=== PATIENT | female | born 1965 | race Two or more races ===

== ENCOUNTER 2021-03-05 07:47 | Outpatient (CLI) | payer OTHER | END 2021-03-05 23:59 | disposition home or self-care (01) | LOC: LAB 07:47 | PROVIDERS: ATTEND Specialist | DX: Z01.812 Encounter for preprocedural laboratory examination (principal); Z20.822 Contact with and (suspected) exposure to COVID-19 | CPT/HCPCS: C9803; U0003 ==

== ENCOUNTER 2021-03-12 05:02 | Inpatient (IN) | payer OTHER ==
[~2021-03-12] VITALS: Ht 160 cm; Wt 81.6 kg
[2021-03-12] MEDS ORDERED: BUPIVACAINE 0.5 % PF 150 MG/30 ML VIAL ONE (05:39)
[2021-03-12] MEDS ORDERED: ANESTHESIA TRAY IN PYXIS 1 EA TRAY MC ONE (05:39)
--- NOTE | 2021-03-12 05:42 | NUR ---
SHUTTLE DRIVER NOTE RECEIVED PATIENT VIA AMBULATION. PATIENT IS A/O X4 PATIENT IS BREATHING EVENLY AND NONLABORED ON ROOM AIR. NO SIGNS OF DISTRESS NOTED. PATIENT DENIES PAIN AT THIS TIME. VITALS BP 133/99, HR 96, O2 SAT 96 % RR 18 AND TEMP 97.7. IV ACCESS WAS PLACED LAC # 18 GAUGE. MRSA SWAB OBTAINED AND PLACED IN LAB FRIDGE, LAB AWARE. PATIENT IS HERE FOR RIGHT KNEE TOTAL ARTHROPLASTY, CONSENT DONE, CHECKLIST DONE. PROCEDURE IS SCHEDULED AND PATIENT VERBALIZED UNDERSTANDING. PATIENTS BELONGINGS WERE ACCOUNTED FOR. PATIENT WAS ORIENTED TO THE ROOM AND HOW TO USE THE CALL LIGHT. SAFETY MEASURES IN PLACE BED LOW LOCKED AND CALL LIGHT WITHIN REACH. WILL CONTINUE TO MONITOR
[2021-03-12] MEDS ORDERED: TRANEXAMIC ACID 3,000 MG in SODIUM CHLORIDE IRRIG SOLUTION 70 ML IR ONE (06:00)
[2021-03-12] MEDS ORDERED: FENTANYL PF 250MCG/5ML AMPUL ONE (06:09)
[2021-03-12] MEDS ORDERED: CLINDAMYCIN 900 MG/6 ML VIAL ONE (06:10)
[2021-03-12] MEDS ORDERED: MIDAZOLAM HCL 2 MG/2ML VIAL ONE (06:10)
--- NOTE | 2021-03-12 06:10 | NUR ---
RN NOTE PATIENT LEFT FOR SURGICAL PROCEDURE, WILL ENDORSE TO ONCOMING SHIFT
[2021-03-12] MEDS ORDERED: SUCCINYLCHOLINE CHLORIDE 20 MG/ML VIAL ONE (06:11)
[2021-03-12] MEDS ORDERED: FAMOTIDINE/PF INJ 20 MG/2 ML VIAL IV ONE (06:11)
[2021-03-12] MEDS ORDERED: FENTANYL PF 100MCG/2ML AMPUL ONE (09:15)
[2021-03-12] MEDS ORDERED: DOCUSATE SODIUM 250 MG CAPSULE PO PRN (09:30)
[2021-03-12] MEDS ORDERED: BISACODYL SUPP (10 MG) 10 MG/SUPP.RECT SUPP.RECT RC PRN (09:30)
[2021-03-12] MEDS ORDERED: SENNOSIDES 8.6 MG TABLET PO PRN (09:30)
[2021-03-12] MEDS ORDERED: HYDROCODONE/APAP 5/325MG TABLET PO PRN (09:30)
[2021-03-12] MEDS ORDERED: ONDANSETRON HCL/PF 4 MG/2 ML VIAL IVP PRN (09:30)
[2021-03-12] MEDS ORDERED: ZOLPIDEM TARTRATE 5 MG TABLET PO PRN (09:30)
[2021-03-12] MEDS ORDERED: ACETAMINOPHEN 325 MG TABLET PO PRN (09:30)
--- NOTE | 2021-03-12 10:00 | NUR ---
MD ADMIT FROM DAY SURGERY AFTER REPORT RECEIVED FROM KAVITA MAURICIO RN. PATIENT ORIENTED TO PRIMARY RN, UNIT, ROOM, BED, AND UNIT POLICIES REGARDING PATIENT CARE AND VISITING HOURS. PATIENT WEIGHED BY BED SCALE AND ENCOURAGED TO CALL IF THEY NEED ANYTHING. ALL QUESTIONS AND CONCERNS ADDRESSED, PATIENT VERBALIZED UNDERSTANDING.
[2021-03-12] MEDS: IV D5/0.45 NACL 1,000 ML IV PRN (10:21)
[2021-03-12] MEDS ORDERED: HYDROMORPHONE 1 MG/1 ML DISP.SYRIN SQ ONE (10:23)
[2021-03-12] MEDS ORDERED: diphenhydrAMINE HCL 25 MG CAPSULE PO PRN (10:30)
[2021-03-12] MEDS ORDERED: MAG HYDROX/AL HYDROX/SIMETH 30 ML UDC PO PRN (10:30)
[2021-03-12] MEDS ORDERED: MENTHOL/CETYLPYRD (CEPACOL) 1 LOZ LOZENGE PO PRN (10:30)
[2021-03-12] MEDS ORDERED: LORAZEPAM 1 MG TABLET PO PRN (10:30)
[2021-03-12] MEDS ORDERED: CLONIDINE HCL 0.1 MG TABLET PO PRN (10:30)
[2021-03-12] MEDS: ONDANSETRON HCL/PF 4 MG/2 ML VIAL IV PRN ×3 (10:50→20:21)
[2021-03-12] MEDS: oxyCODONE IR immediate release 5 MG PO PRN (12:21)
[2021-03-12 15:57] VITALS: BP 107/49
[2021-03-12] MEDS: CLINDAMYCIN 600 MG in IV D5W 50 ML IV SCH ×2 (16:06→22:22)
[2021-03-12] MEDS: DOCUSATE SODIUM 100 MG CAPSULE PO SCH (16:08)
[2021-03-12] MEDS: HYDROMORPHONE 1 MG/1 ML DISP.SYRIN SQ PRN ×3 (16:08→23:52)
[2021-03-12] MEDS: RIVAROXABAN 10 MG TABLET PO SCH (16:12)
--- NOTE | 2021-03-12 19:41 | NUR ---
CHANGE OF SHIFT REPORT PATIENT RESTING COMFORTABLY IN BED. NO S/S OR C/O PAIN OR DISTRESS NOTED. SIDE RAILS UP X2, CALL LIGHT LEFT WITHIN REACH. PT KEPT CLEAN, DRY, AND COMFORTABLE. NO SIGNIFICANT CHANGES SINCE ADMISSION. REPORT GIVEN TO SUIM ADAIR.
[2021-03-12 20:00] VITALS: BP 110/57
[2021-03-12] MEDS: FAMOTIDINE (20 MG) 20 MG TABLET PO SCH (20:22)
--- NOTE | 2021-03-12 22:00 | NUR ---
RT INSTRUCTED THE INCENTIVE SPIROMETER TO THE PT, VERBALIZED UNDERSTANDING, REMINDED THE PATIENT TO DO IT QHOUR 10X WHILE AWAKE.
[2021-03-13] MEDS: IV D5/0.45 NACL 1,000 ML IV PRN (01:40)
[2021-03-13] MEDS: CLINDAMYCIN 600 MG in IV D5W 50 ML IV SCH (03:55)
[2021-03-13] MEDS: HYDROMORPHONE 1 MG/1 ML DISP.SYRIN SQ PRN ×2 (04:55→09:59)
--- NOTE | 2021-03-13 07:00 | NUR ---
Received patient AO x 4, able to responds all stimuli. Patient does no c/o pain or discomfort at this time. Respiratory even and unlabored on room air. Skin is warm to touch, keep clean/dry. Call light within reach, keep lower bed position and elevated HOB, will continue to monitor.
[2021-03-13 08:00] VITALS: BP 121/68
[2021-03-13] MEDS ORDERED: TRAM50TA2 PO (09:04)
[2021-03-13] MEDS ORDERED: ERGO500093 PO (09:04)
[2021-03-13] MEDS ORDERED: ATOR10TA PO (09:04)
[2021-03-13] MEDS ORDERED: LORA-258 PO (09:04)
[2021-03-13] MEDS ORDERED: METF-442 PO (09:04)
[2021-03-13] MEDS: DOCUSATE SODIUM 100 MG CAPSULE PO SCH ×2 (09:52→16:57)
[2021-03-13] MEDS: FAMOTIDINE (20 MG) 20 MG TABLET PO SCH ×2 (09:52→20:08)
[2021-03-13] MEDS: ONDANSETRON HCL/PF 4 MG/2 ML VIAL IV PRN ×2 (09:59→14:12)
[2021-03-13] MEDS ORDERED: LORAZEPAM 0.5 MG TABLET PO PRN (10:00)
--- NOTE | 2021-03-13 11:00 | NUR ---
Patient c/o right knee pain, pain scale was 10 out of 10 and given Dilaudid. Patient denies right knee pain at this time.
[2021-03-13 16:00] VITALS: BP 122/64
[2021-03-13] MEDS: oxyCODONE IR immediate release 5 MG PO PRN ×2 (16:57→20:08)
[2021-03-13] MEDS: METFORMIN 500 MG TABLET PO SCH ×2 (16:57→17:00)
[2021-03-13] MEDS: RIVAROXABAN 10 MG TABLET PO SCH (16:58)
[2021-03-13] MEDS ORDERED: ATORVASTATIN 10 MG TABLET PO SCH (18:00)
--- NOTE | 2021-03-13 18:03 | NUR ---
RN Note Patient in bed, remains AO x 4. Respiration even and unlabored on room air. Patient refused metformin 1000 mg due to poor appetite and BS 169mg at this time. Skin is warm to touch, kept lower position of the bed. Call light within reach, will continue to monitor.
--- NOTE | 2021-03-13 19:10 | NUR ---
MS RN OPENING NOTES: RECEIVED PATIENT IN BED, AWAKE, A/O X4. NO S/S OF DISTRESS NOTED. NO COMPLAIN OF PAIN. CALL LIGHT WITHIN REACH. ON CPM MACHINE AT THIS TIME, PER PATIENT IT STARTED AT 6PM TODAY, PATIENT STATES SHE IS TOLERATING CPM. PER PATIENT'S DAUGHTER, PT SEEN THE PATIENT EARLIER TODAY,PATIENT DID NOT WALK.
--- NOTE | 2021-03-13 19:24 | NUR ---
CPM STOPPED BY PATIENT AND DAUGHTER.
[2021-03-13 20:00] VITALS: BP 122/74
--- NOTE | 2021-03-13 20:27 | NUR ---
RECEIVED A CALL FROM DR MULLINS, INFORMED MD RE: PATIENT HAD CPM TONIGHT FROM 6PM TO 7:30PM, AND ALSO IN THE MORNING. INFORMED MD ALSO THAT THE PATIENT DID NOT WALK WITH THE PT TODAY, ONLY IN BED ACCORDING TO THE DAUGHTER AND THE PATIENT.
--- NOTE | 2021-03-13 21:01 | NUR ---
DR MULLINS CAME AND SEEN THE PATIENT.
[2021-03-14] MEDS: oxyCODONE IR immediate release 5 MG PO PRN (02:06)
[2021-03-14] MEDS: ONDANSETRON HCL/PF 4 MG/2 ML VIAL IV PRN ×2 (06:44→12:38)
--- NOTE | 2021-03-14 07:30 | NUR ---
RN MS NOTES PT IN BED, AWAKE, ALERT AND ORIENTED, NO COMPLANT OF PAIN AT THIS TIME, RESPIRATIONS NORMAL, CALL LIGHT WITHIN REACH, PT EAGER TO WALK TODAY, REQUESTING FOR PAIN MEDS BEFORE PHYSICAL THERAPY.
[2021-03-14 08:00] VITALS: BP 116/71
[2021-03-14] MEDS: METFORMIN 500 MG TABLET PO SCH (09:00)
[2021-03-14] MEDS: DOCUSATE SODIUM 100 MG CAPSULE PO SCH (09:02)
[2021-03-14] MEDS: FAMOTIDINE (20 MG) 20 MG TABLET PO SCH (09:02)
[2021-03-14] MEDS: HYDROMORPHONE 1 MG/1 ML DISP.SYRIN SQ PRN ×2 (09:14→12:38)
--- NOTE | 2021-03-14 10:10 | NUR ---
RN MS NOTES PT AMBULATED WITH PHYSICAL THERAPY, ABLE TO WALK WITH A WALKER, TOLERATED WELL, SEEN BY DR. MULLINS, CLEARED FOR DISCHARGE.
--- NOTE | 2021-03-14 14:55 | NUR ---
RN MS NOTES PT IN BED, AWAKE, ALERT AND ORIENTED, PAIN MEDS GIVEN FOR PAIN MANAGEMENT, PT ABLE TO AMBULATE WITH A WALKER WITH PHYSICAL THERAPIST, TOLERATED WELL, PT ABLE TO AMBULATE TO THE BATHROOM WITH ASSISTANCE, SEEN BY DR. ALBARRAN, DISCHARGE ORDER GIVEN, DISCHARGE AND MEDICATION INSTRUCTIONS PROVIDED TO PT, NEW PRESCRIPTIONS PROVIDED TO PT BY DR. PARNELL'S OFFICE BEFORE SURGERY, DRESSING CHANGE DONE BY LYN MILLER, ASSISTED PT TO HOSPITAL LOBBY VIA WHEELCHAIR BY MACHINE CRATER, PICKED UP BY FAMILY MEMBERS, LEFT VIA PRIVATE CAR IN STABLE CONDITION.
[2021-03-23] MEDS ORDERED: ASPIRIN 325 MG TABLET PO SCH (09:00)
== END 2021-03-14 13:00 | disposition home health service (06) | DRG 470 ==
LOC: DS 05:02 → MED 05:04
PROVIDERS: ADMIT Internal Medicine; ATTEND Internal Medicine
PROC: 0SRC0J9 Replacement of Right Knee Joint with Synthetic Substitute, Cemented, Open Approach (ICD-10-PCS; principal; 2021-03-12)
DX: M17.11 Unilateral primary osteoarthritis, right knee (principal); E78.5 Hyperlipidemia, unspecified; E11.9 Type 2 diabetes mellitus without complications; F41.9 Anxiety disorder, unspecified; F39 Unspecified mood [affective] disorder; Y99.0 Civilian activity done for income or pay; Z20.822 Contact with and (suspected) exposure to COVID-19; I10 Essential (primary) hypertension; X58.XXXA Exposure to other specified factors, initial encounter; Z79.84 Long term (current) use of oral hypoglycemic drugs; Z79.899 Other long term (current) drug therapy; Z88.1 Allergy status to other antibiotic agents; Z88.0 Allergy status to penicillin; Z90.710 Acquired absence of both cervix and uterus; Z98.890 Other specified postprocedural states; Z90.49 Acquired absence of other specified parts of digestive tract
CPT/HCPCS: 87081-TC; 88305-TC; 88311-TC; 97116-TC; 97530-TC; 97760-TC; A4217; C1713; C1776; G0378; J0330; J1170; J2250; J2405; J2704; J2765; J3010; J3490; J7030; J7060; L1830